=== PATIENT | male | born 1935 | race Hispanic/Latino ===

== ENCOUNTER 2018-06-13 11:52 | Outpatient (CLI) | payer MEDICARE ==
--- NOTE | 2018-06-13 16:18 | Cat Scan Report ---
FINAL REPORT EXAM: CT ABDOMEN PELVIS WO CON HISTORY: RIGHT LOWER QUADRANT PAIN, PELVIC AND PERINEAL PAIN COMPARISON: None. TECHNIQUE: Multiple contiguous axial images were obtained from the lung bases to the pubic symphysis without administration of IV contrast. Oral contrast was administered. Reformatted sagittal and coronal images were available for review. FINDINGS: Lung bases: Small right pleural effusion with associated atelectasis. There are calcified granulomas at the right lower lobe.. Visualized heart and mediastinum: Normal heart size. Pacemaker leads are visualized. Liver: Normal noncontrast appearance. Spleen: Normal noncontrast appearance. Pancreas: Normal noncontrast appearance. Gallbladder and Biliary Tree: Gallbladder is surgically absent. There is no biliary ductal dilatation. Adrenal glands: Normal. Kidneys: Normal noncontrast appearance. No renal or ureteral calculi. No hydronephrosis. Bladder: Bradley catheter within a decompressed bladder. The bladder appears thick walled. Pelvic organs: Mild prominence of the prostate gland with mass effect at the bladder base. Bowel: No focal wall thickening. No evidence of obstruction. Oral contrast advances to the transverse colon. The appendix is not clearly identified, but there are no pericecal inflammatory changes. Peritoneum: No significant mesenteric adenopathy. No free air or free fluid. Vasculature: Abdominal aorta is normal in caliber without evidence of aneurysm. Scattered atherosclerotic calcifications. Normal noncontrast appearance of the portal venous system and the inferior vena cava. Bones and soft tissues: No suspicious osseous lesions. No acute fracture or dislocation. Multilevel degenerative changes of the lumbar spine. Mild edema of the dependent soft tissues. Small, fat containing bilateral inguinal hernias. IMPRESSION: 1. Small right pleural effusion. 2. Thick-walled bladder, which may represent cystitis versus bladder outlet obstruction. 3. Mild prominence of the prostate gland with mass effect at the bladder base. 4. Mild edema of the dependent soft tissues. 5. No evidence of bowel obstruction. The appendix is not clearly identified, but there are no pericecal inflammatory changes.
== END 2018-06-13 11:53 | disposition home or self-care (01) ==
LOC: CT 11:52
PROVIDERS: ATTEND Urology
DX: K40.20 Bilateral inguinal hernia, without obstruction or gangrene, not specified as recurrent (principal); J90 Pleural effusion, not elsewhere classified; M47.896 Other spondylosis, lumbar region; R60.9 Edema, unspecified; I10 Essential (primary) hypertension; E78.5 Hyperlipidemia, unspecified; I48.91 Unspecified atrial fibrillation
CPT/HCPCS: 74176

== ENCOUNTER 2018-06-14 09:10 | Emergency (ER) | payer MEDICARE ==
[2018-06-14 11:21] LABS: Basophils % (Auto) 0.5 % (0.0-1.8); Eosinophils # (Auto) 0.5 K/mm3 (0.0-0.4); Hematocrit 37.2 % (35.5-45.6); Hemoglobin 12.6 gm/dl (11.8-15.2); Lymphocytes # (Auto) 1.4 K/mm3 (1.2-5.4); Lymphocytes % (Auto) 13.9 % (13.4-35.0); Mean Corpuscular HGB Conc 34 % (32-34); Mean Corpuscular Hemoglobin 30 pg (28-32); Mean Corpuscular Volume 88 fl (84-94); Platelet Count 204 K/mm3 (140-440); Red Blood Count 4.25 M/mm3 (3.65-5.03)
[2018-06-14 11:39] LABS: INR 1.08 (0.87-1.13)
[2018-06-14 11:42] LABS: BUN/Creatinine Ratio 13; Blood Urea Nitrogen 10 mg/dL (9-20); Calcium 9.2 mg/dL (8.4-10.2); Hemolysis Index 0
--- NOTE | 2018-06-14 11:56 | Emergency Department Report ---
ED Male HPI - General Chief complaint: Tube Replacement Stated complaint: CATHETER MALFUNCTION Time Seen by Provider: 06/14/18 10:49 Source: patient, EMS Mode of arrival: Wheelchair Limitations: No Limitations - History of Present Illness Initial comments: Mr. Apodaca is a very pleasant 82-year-old male who presents with Patino catheter malfunction. He is here with his caregiver and stepdaughter Brandy Melendrez at the bedside. He has a history of hypertension, dyslipidemia, sick sinus syndrome status post pacemaker, atrial fibrillation. He has previously been on warfarin. However due to hematuria, he is now only taken aspirin. Today he did not realize that the Patino bag was connected to his bed. Normally the Patino bag is connected to his walker. When he attempted to ambulate from the bed, the catheter stretched across the room. His stepdaughter was able to deflate the balloon and remove the catheter. He has copious output of bloody urine. He's had some urine output in his diaper over the last 3 hours. He does not have any discomfort at this time. He is followed by urologist Dr. French. Caregiver Brandy explained that Dr. French has recommended suprapubic catheter. Home nurse has had increasing difficulty changing the patino catheter. Catheter was changed 2 weeks ago. Size 20 Fr -: Sudden Severity: mild indwelling catheter denies other symptoms - Related Data Home Medications Medication Instructions Recorded Confirmed Last Taken Amlodipine Besylate 5 mg PO DAILY 11/16/13 08/23/14 08/22/14 5mg Dutasteride/Tamsulosin HCl [[place]ma 0.5 mg PO DAILY 11/16/13 08/23/14 08/14/14 0.5-0.4 mg] .5mg Quinapril(Nf) [Accupril (Nf)] 40 mg PO DAILY 11/16/13 08/23/14 08/22/14 40mg Warfarin [Coumadin] 5 mg PO Q48HR 08/23/14 08/23/14 08/19/14 5mg Warfarin [Coumadin] 7.5 mg PO Q48H 08/23/14 08/23/14 08/18/14 7.5mg Previous Rx's Medication Instructions Recorded Last Taken Type Nitrofurantoin Monohyd/M-Cryst 100 mg PO BID 7 Days #14 capsule 06/14/18 Unknown Rx [Macrobid 100 mg Capsule] Allergies Allergy/AdvReac Type Severity Reaction Status Date / Time Penicillins Allergy Rash Verified 06/14/18 09:40 ED Review of Systems ROS: Stated complaint: CATHETER MALFUNCTION Other details as noted in HPI Comment: All other systems reviewed and negative Constitutional: denies: fever, malaise Cardiovascular: denies: chest pain, palpitations ED Past Medical Hx - Past Medical History Hx Hypertension: Yes Hx Congestive Heart Failure: No Hx Diabetes: No Hx Arthritis: Yes Hx Seizures: No Hx Kidney Stones: Yes Hx Asthma: No Hx COPD: No Hx HIV: No - Surgical History Hx Pacemaker: Yes Hx Cholecystectomy: Yes - Social History Smoking Status: Never Smoker Substance Use Type: None Other Social History: lives with caregiver, stepparis Melendrez - Medications Home Medications: Home Medications Medication Instructions Recorded Confirmed Last Taken Type Amlodipine Besylate 5 mg PO DAILY 11/16/13 08/23/14 08/22/14 History 5mg Dutasteride/Tamsulosin HCl [[place] 0.5 mg PO DAILY 11/16/13 08/23/14 08/14/14 History 0.5-0.4 mg] .5mg Quinapril(Nf) [Accupril (Nf)] 40 mg PO DAILY 11/16/13 08/23/14 08/22/14 History 40mg Warfarin [Coumadin] 5 mg PO Q48HR 08/23/14 08/23/14 08/19/14 History 5mg Warfarin [Coumadin] 7.5 mg PO Q48H 08/23/14 08/23/14 08/18/14 History 7.5mg Nitrofurantoin Monohyd/M-Cryst 100 mg PO BID 7 Days #14 capsule 06/14/18 Unknown Rx [Macrobid 100 mg Capsule] ED Physical Exam - General Limitations: No Limitations General appearance: alert, in no apparent distress, other (pleasant insightful articulate) - Head Head exam: Present: atraumatic, normocephalic - Eye Eye exam: Present: normal appearance - ENT ENT exam: Present: mucous membranes moist - Neck Neck exam: Present: normal inspection. Absent: tenderness, meningismus - Respiratory Respiratory exam: Present: normal lung sounds bilaterally. Absent: respiratory distress, wheezes, rales, rhonchi - Cardiovascular Cardiovascular Exam: Present: regular rate, normal rhythm. Absent: systolic murmur, diastolic murmur, rubs, gallop - GI/Abdominal GI/Abdominal exam: Present: soft. Absent: distended, tenderness, guarding, rebound - Rectal Rectal exam: Present: deferred - Extremities Exam Extremities exam: Present: other (right leg is larger than the other 2+ DP pulses bilaterally no significant edema) - Neurological Exam Neurological exam: Present: alert, oriented X3 - Psychiatric Psychiatric exam: Present: normal affect, normal mood - Skin Skin exam: Present: warm, dry, intact, normal color. Absent: rash - Other Other exam information: Few spots of blood in the diaper, no blood at the meatus, no edema or tenderness involving the penis or scrotum, normal exam ED Course Vital Signs 06/14/18 09:40 Temperature 98.9 F Pulse Rate 54 L Respiratory 18 Rate Blood Pressure 164/76 O2 Sat by Pulse 95 Oximetry - Procedure Description Procedures done: Patino Catheter Insertion Attempt. verbal consent obtained. Under sterile conditions, attempted to insert 20 [place] coude catheter without successful and mild discomfort to patient. ED Medical Decision Making - Lab Data Result diagrams: 06/14/18 11:09 06/14/18 11:09 Laboratory Results - last 24 hr 06/14/18 06/14/18 06/14/18 11:09 11:09 11:09 WBC 9.7 RBC 4.25 Hgb 12.6 Hct 37.2 MCV 88 MCH 30 MCHC 34 RDW 18.0 H Plt Count 204 Lymph % (Auto) 13.9 [place] % (Auto) 10.0 H Eos % (Auto) 5.0 H Baso % (Auto) 0.5 Lymph # 1.4 [place] # 1.0 H Eos # 0.5 H Baso # 0.0 Seg Neutrophils % 70.6 H Seg Neutrophils # 6.9 PT 14.5 INR 1.08 Sodium 137 Potassium 4.3 Chloride 99.9 Carbon Dioxide 27 Anion Gap 14 BUN 10 Creatinine 0.8 Estimated GFR > 60 BUN/Creatinine Ratio 13 Glucose 93 Calcium 9.2 - Medical Decision Making Ms. Apodaca is a 32-year-old male who has had cold Patino catheter in place for the last 6 months for BPH. He is being followed by Dr. French urologist. He's had previous surgical intervention several years ago to address to BPH. Normal kidney function. Normal white count. No signs of sepsis. Nursing staff was unable to insert catheter. I was unable to insert 20 [place] coude catheter. I consulted patient's personal urologist Dr. French. He arranged for Dr. Carrillo urologist to evaluate and treat patient in ED. Dr. Carrillo was able to insert patino catheter. He recommended antibiotics since a guidewire was used for the insertion. Rx: macrobid, first dose provide in the ED. Critical care attestation.: If time is entered above; I have spent that time in minutes in the direct care of this critically ill patient, excluding procedure time. ED Disposition Clinical Impression: Patino catheter problem, Urinary retention Disposition: DC- TO HOME OR SELFCARE Is pt being admited?: No Does the pt Need Aspirin: No Condition: Stable Instructions: Patino Catheter Placement and Care (ED) Prescriptions: Nitrofurantoin Monohyd/M-Cryst [Macrobid 100 mg Capsule] 100 mg PO BID 7 Days # 14 capsule Referrals: CATERINA FRENCH MD [Staff Physician] - as needed Time of Disposition: 19:13
[2018-06-14] MEDS ORDERED: MACROBID PO ONE (19:10)
[2018-06-14 19:45] LABS: Bilirubin,Urine NEG (Negative); Blood,Urine LG (Negative); Color,Urine Yellow (Yellow); Protein,Urine <15 mg/dL mg/dL (Negative); Urobilinogen,Urine < 2.0 mg/dL (<2.0)
[2018-06-14 20:12] VITALS: BP 132/88
== END 2018-06-14 20:14 | disposition home or self-care (01) ==
LOC: ED 09:10 → EEVIPCON 09:10 → ED 20:14
DX: T83.098A Other mechanical complication of other urinary catheter, initial encounter (principal); I10 Essential (primary) hypertension; E78.5 Hyperlipidemia, unspecified; I49.5 Sick sinus syndrome; I48.91 Unspecified atrial fibrillation; M19.90 Unspecified osteoarthritis, unspecified site; Z79.82 Long term (current) use of aspirin; Z88.0 Allergy status to penicillin; Z87.442 Personal history of urinary calculi; Z90.49 Acquired absence of other specified parts of digestive tract; Z95.0 Presence of cardiac pacemaker
CPT/HCPCS: 36415; 51702; 80048; 81001; 85025; 85610; 87086